=== PATIENT | female | born 1940 | race Caucasian/White ===

== ENCOUNTER 2018-06-23 12:37 | Emergency (ER) | payer MEDICARE ==
[2018-06-23 13:33] VITALS: BP 173/75
--- NOTE | 2018-06-23 13:56 | UC ---
Skin Complaint HPI - HPI Summary HPI Summary: her cat got startled by a dog and scratched her left lower leg to try to get away from them---patient has 4 lacerations which are gapping open anterior lower leg and multiple scratches that are superficial posteriorly - History of Current Complaint Chief Complaint: [place]CS[place] Time Seen by Provider: 06/23/18 13:22 Stated Complaint: LEFT LEG CAT SCRATCH Hx Obtained From: Patient ?: No Onset/Duration: Sudden Onset, Lasting Minutes Skin Exposure Onset/Duration: Minutes Ago Timing: Constant Pain Intensity: 4 Pain Scale Used: 0-10 Numeric Aggravating Factor(s): Nothing Alleviating Factor(s): Nothing Associated Signs & Symptoms: Positive: Negative - Allergy/Home Medications Allergies/Adverse Reactions: Allergies Allergy/AdvReac Type Severity Reaction Status Date / Time Latex, Natural Rubber Allergy Blisters Verified 06/23/18 13:25 Home Medications: Home Medications Aspirin EC TAB* [Ecotrin EC Low Dose 81 MG*] 81 mg PO DAILY 06/23/18 [History Confirmed 06/23/18] Atorvastatin* [Lipitor 20 MG*] 20 mg PO DAILY 06/23/18 [History Confirmed ] Cyanocobalamin TAB* [Vitamin B12 TAB*] 1,000 mcg PO DAILY 06/23/18 [History Confirmed 06/23/18] Enalapril TAB* [Vasotec TAB*] 40 mg PO QAM 06/23/18 [History Confirmed 06/23/18] Gabapentin CAP(*) [Neurontin 100 mg CAP(*)] 100 mg PO BEDTIME 06/23/18 [History Confirmed 06/23/18] HYDROcodone/ACETAMIN 5-325 MG* [Basehor 5-325 TAB*] 0.5 - 1 tab PO BID PRN [History Confirmed 06/23/18] Meclizine TAB* [Antivert 12.5 TAB*] 12.5 mg PO TID PRN 06/23/18 [History Confirmed 06/23/18] Meloxicam(NF) [Mobic(NF)] 15 mg PO DAILY 06/23/18 [History Confirmed 06/23/18] Omeprazole CAP* [Prilosec CAP* 20 MG] 20 mg PO DAILY 06/23/18 [History Confirmed 06/23/18] amLODIPine TAB* [Norvasc 5 mg TAB*] 5 mg PO DAILY 06/23/18 [History Confirmed ] Review of Systems Constitutional: Negative Skin: Other - multiple superficifal and 4 gaping lacerations to left anterior lower leg Eyes: Negative ENT: Negative Respiratory: Negative Cardiovascular: Negative Gastrointestinal: Negative Genitourinary: Negative Motor: Negative Neurovascular: Negative Musculoskeletal: Negative Neurological: Negative Psychological: Negative Is Patient Immunocompromised?: No All Other Systems Reviewed And Are Negative: Yes PMH/Surg Hx/FS Hx/Imm Hx Endocrine History: Dyslipidemia Cardiovascular History: Hypertension GI/ History: Gastroesophageal Reflux Neurological History: Other Other Neurological History: vertigo - Surgical History Surgical History: Yes Surgery Procedure, Year, and Place: Right Rotator Cuff, 2015, [place]; Total Hysterectomy, 1981, [place] - Family History Known Family History: Positive: None - Social History Occupation: Retired Lives: With Family Alcohol Use: None Substance Use Type: None Smoking Status (MU): Never Smoked Tobacco - Immunization History Most Recent Tetanus Shot: "I have no idea." Vaccination Up to Date: No Physical Exam Triage Information Reviewed: Yes Appearance: Well-Appearing, No Pain Distress, Well-Nourished Vital Signs: Initial Vital Signs Temp 98.4 F 06/23/18 13:23 Pulse 80 06/23/18 13:23 Resp 16 06/23/18 13:23 BP 173/75 06/23/18 13:23 Pulse Ox 99 06/23/18 13:23 Vital Signs Reviewed: Yes Eye Exam: Normal Eyes: Positive: Conjunctiva Clear ENT Exam: Normal ENT: Positive: Normal ENT inspection, Hearing grossly normal. Negative: Trismus , Muffled voice, Hoarse voice Dental Exam: Normal Neck exam: Normal Neck: Positive: Supple, Nontender Respiratory Exam: Normal Respiratory: Positive: Chest non-tender, No respiratory distress, No accessory muscle use Cardiovascular Exam: Normal Cardiovascular: Positive: RRR, Pulses Normal, Brisk Capillary Refill Musculoskeletal Exam: Normal Musculoskeletal: Positive: Strength Intact, ROM Intact, No Edema Neurological Exam: Normal Neurological: Positive: Alert, Muscle Tone Normal Psychological Exam: Normal Skin: Positive: Other - 4 open lacerations anterior left lower leg and multiple superticial scratches Laceration Repair - Laceration Repair 1 Description: Linear Laceration Size After Repair: Length (cm) - 7, Width (mm) - 1, Depth (mm) - 2 Modified For Repair: No Type Injection: Local Anesthesia Used: 1.0% Lido Cleansing Completed Via Routine Prep: Yes Irrigation With Pressure Irrigation Device: Yes Closure Method: Single Layer Suture Of: Skin Suture Type: Prolene - 8 number 5 .0 simple interupted suture 2 Description: Linear Laceration Size After Repair: Length (cm) - 4, Width (mm) - 1, Depth (mm) - 1 Type Injection: Local Cleansing Completed Via Routine Prep: Yes Irrigation With Pressure Irrigation Device: Yes Closure Method: Single Layer - 3 number 5.0 Suture Of: Skin Suture Type: Prolene 3 Description: Linear Laceration Size After Repair: Length (cm) - 3, Width (mm) - 1, Depth (mm) - 1 Modified For Repair: No Cleansing Completed Via Routine Prep: Yes Irrigation With Pressure Irrigation Device: Yes Suture Of: Skin Suture Type: Prolene - 1 number 5.0 4 Description: Linear Laceration Size After Repair: Width (mm) - 1, Depth (mm) - 1 Modified For Repair: Yes Cleansing Completed Via Routine Prep: Yes Irrigation With Pressure Irrigation Device: Yes Suture Of: Skin Suture Type: Prolene - 1 number 5.0 Re-Evaluation - Re-Evaluation First Eval Change: Improved - wounds well approximated bleeding comtrolled--all suture in loosly for infection management reasons Course/Dx - Course Course Of Treatment: elevate, mild soap and water wash augmentin update tetanus , follow BP with PCP - Diagnoses Provider Diagnoses: 4 lacerations with suture repair 17 cm total length, up date teanus, elevated BP in poor control Discharge - Sign-Out/Discharge Documenting (check all that apply): Patient Departure - Discharge Plan Condition: Stable Disposition: HOME Prescriptions: Amoxicillin/Clavulanate TAB* [Augmentin TAB 875*] 875 mg PO BID #20 tab Patient Education Materials: Care For Your Stitches (ED), Laceration (ED), Hypertension (ED) Referrals: Jacquie Walter MD [Primary Care Provider] - 2 Weeks Additional Instructions: Return in 10 days for suture removal Keep leg elevated as much as possible---Limit activities and elevate several times a day to decrease swelling - Billing Disposition and Condition Condition: STABLE Disposition: Home Images Front/Back of Body, Lg ([place]): 1 - 7 cm 2 - 4 cm 3 - 3cm 4 - 3 cm Attestation Statement User Type: Provider - I was available for consult. This patient was seen by the [facility]. The patient was not presented to, seen by, or examined by me. -Any
[2018-06-23] MEDS ORDERED: HYDROcodone/ACETAMIN 5-325 MG* 1 TAB PO ONE (13:58)
[2018-06-23] MEDS ORDERED: Tetan/Diph/Pertus SYR(Tdap)* 0.5 ML SYR(BOOSTRIX) use SYR IM ONE (13:58)
[2018-06-23] MEDS ORDERED: Lidocaine 4% TOPICAL* 50 ML TOP.SOLN TOPICAL ONE (13:59)
[2018-06-23] MEDS ORDERED: Lidocaine 1%* 5 ML VIAL INJ ONE (14:00)
== END 2018-06-23 15:53 | disposition home or self-care (01) ==
LOC: UCCORT 12:37
DX: S81.812A Laceration without foreign body, left lower leg, initial encounter (principal); W55.03XA Scratched by cat, initial encounter; Y93.9 Activity, unspecified; Y92.009 Unspecified place in unspecified non-institutional (private) residence as the place of occurrence of the external cause; Z23 Encounter for immunization; R03.0 Elevated blood-pressure reading, without diagnosis of hypertension
CPT/HCPCS: 12005; 90471; 90715; 99213; G0463